=== PATIENT | female | born 1965 | race Caucasian/White ===

== ENCOUNTER → 2021-10-11 07:54 | Outpatient (CLI) | payer SELFPAY ==
--- NOTE | 2021-10-11 08:01 | BI_ITS ---
MAMMOGRAPHY - BILATERAL SCREENING REASON FOR EXAM: Female, 56 years old. Routine annual screening examination. PERTINENT HISTORY: Aunt with breast cancer. Remote right excisional breast biopsy. Prior left breast biopsy. TECHNIQUE: Digital bilateral breast yennifer (3D mammographic acquisition) in the CC and MLO projections. 2-D mediolateral oblique (MLO) and craniocaudad (CC) views of both breasts were obtained. CAD: Full Field Digital Mammography with Computer Added Detection was performed. COMPARISON: Comparison is made with prior outside examination of 03/08/2018. FINDINGS: Breast Composition: The breasts are heterogeneously dense, which may obscure small masses. There are no dominant masses or suspicious calcifications. A tissue clip marker is once again seen within a 9.1 mm nodule in the deep upper lateral aspect of the left breast. No other significant abnormalities are identified. There has been no significant change since the prior study. BI/SCRN MAMM (CAD)W/YENNIFER BILAT IMPRESSION: Stable bilateral screening mammogram. Yearly follow-up mammogram recommended. (A) ASSESSMENT CATEGORY: BIRADS Category 2: Benign. A letter regarding these results will be sent to the patient by the facility within 30 days. Approximately 10% of breast cancers are not detected by mammography. A normal mammogram should not delay biopsy of a clinically suspicious abnormality. [id number] Electronically Signed: Perez Simpson MD at 9:32 EDT ,
== END ==
DX: Z12.31 Encounter for screening mammogram for malignant neoplasm of breast (principal)
CPT/HCPCS: 77063; 77067

== ENCOUNTER 2021-11-05 08:02 | Day surgery (SDC) | payer SELFPAY ==
[2021-11-05] MEDS: Lactated Ringers 1,000 ML 15 ML IV (08:31)
[2021-11-05 08:34] VITALS: BP 121/80; PULSE 73; RESP 14; TEMP 36.3; O2SAT 99; BMI 25.3
--- NOTE | 2021-11-05 09:07 | H&P.OPEN ---
HPI - General HPI Narrative RAFY MCKINNON, is a 56 F who presents for screening colonoscopy. The patient has family history of colon cancer in her mother and gets colonoscopies every 5 years. Her last was normal. She did have a tortuous colon during her last colonoscopy. Patient denies any abdominal pain or blood in her stool. FOR[facility]LY [facility], [facility] Medical History (Updated 11/05/21 @ 09:[address] Raad Vivar MD) Anxiety Arthritis Depression High cholesterol Post-menopausal Wears glasses Home Medications atorvastatin 10 mg PO DAILY 10/31/21 [History Last Taken Unknown] venlafaxine [Effexor XR] 150 mg PO DAILY 10/31/21 [History Last Taken 11/05/21] Allergy/AdvReac Type Severity Reaction Status Date / Time amoxicillin Allergy Severe Hives Verified 10/31/21 12:24 Penicillins Allergy Severe Hives Verified 10/31/21 12:24 Sulfa (Sulfonamide Allergy Severe Hives Verified 10/31/21 12:24 Antibiotics) imipramine Allergy Intermediate Hives Verified 10/31/21 12:24 Surgical History (Updated 10/31/21 @ 12:29 by Nandini Bustillo) History of bladder surgery Social History Smoking Status: Never smoker Past Medical/Surgical History Planned Operation Planned Operative Procedure/s: Colonoscopy, OA Previous Hospitalizations/Surgeries HX Hospitalizations: No Any Problems With Anesthesia: No You/Your Family Experience Fever (Hyperthermia) With Anes: No Cholinesterase deficiency: No Cardiovascular Hx Hypertension: No Respiratory Hx Sleep Apnea: No Hx Respiratory Tract Infection/Cold (presently): No Do You Snore Loudly (louder than talking or can be heard): No Do You Often Feel Tired/ Fatigued/ Sleepy Dring Daytime?: No Has Anyone Observed You Stop Breathing During Sleep?: No Result (for STOP score): Negative Smoking Status: Never smoker Neurological Does patient have nerve stimulator: No Miscellaneous Recent Exposure to Contagious Disease: No Allergies amoxicillin Allergy (Severe, Verified 10/31/21 12:24) Hives Penicillins Allergy (Severe, Verified 10/31/21 12:24) Hives Sulfa (Sulfonamide Antibiotics) Allergy (Severe, Verified 10/31/21 12:24) Hives imipramine Allergy (Intermediate, Verified 10/31/21 12:24) Hives Discharge Is Pt Admitted From a Jail, or a Skilled Nursing: No After D/C, Where Do you Plan to Go: Return Home Vital Signs Vital Signs Vital Signs: 11/05/21 08:32 11/05/21 08:34 Temperature 97.4 F L Temperature Source Temporal Pulse Rate 73 Respiratory Rate 14 Respiratory Pattern Normal Blood Pressure 121/80 H Blood Pressure Mean 93 Blood Pressure Source Monitor Blood Pressure Position Sitting Blood Pressure Location Left Arm Pulse Ox 99 Oxygen Delivery Method Room Air Weight Weight: 147 lb 11.355 oz Body Mass Index (BMI) 25.3 Physical Exam Const alert and oriented x3 Resp normal respiratory effort and normal air movement Cardio regular rate and regular rhythm GI soft to palpation, non-tender and non-distended Assessment & Plan Assessment/Plan (1) Family history of colon cancer in mother: PLAN: I explained endoscopy in detail to the patient. I explained the risks including but not limited to stroke or heart attack with anesthesia, perforation of the GI tract, bleeding, infection. I explained that any of these could necessitate further emergency surgery. The patient understands and all questions were answered sufficiently. The patient wishes to proceed with procedure. Raad Vivar MD Pager: [facility] [address] [place] [address], [address] [place] [address] Office: Surgery Risks - Colonoscopy Risks Include but are not Limited To: Risks include but are not limited to: Bleeding, perforation requiring further surgery, inability to complete colonoscopy requiring barium enema.
--- NOTE | 2021-11-05 09:49 | OP.CCLET_ITS ---
11/05/2021 Dari Re : Colonoscopy procedure for Dolores Marreror Dari This procedure was performed on Friday, November 05, 2021. My impressions and recommendations are as follows: Impressions : - The entire examined colon is normal on direct and retroflexion views. - No specimens collected. Recommendations : - Discharge patient to home. - Resume previous diet. - Continue present medications. - Repeat colonoscopy in 5 years for surveillance. My findings are described in the full procedure note, which is enclosed. If I can be of further assistance, please feel free to contact me at Doctor phone number(s): , Work: . Sincerely, Raad Vivar MD 11/05/2021 9:49:02 AM This report has been signed electronically.
--- NOTE | 2021-11-05 09:49 | OP.COLON_ITS ---
Patient Name: Dolores Raines Procedure Date: 11/05/2021 9:14 AM Date of : 1965 Age: 56 Procedure: Colonoscopy Indications: Family history of colon cancer in a first-degree relative Providers: Raad Vivar MD Medicines: Monitored Anesthesia Care Patient Profile: This is a 56 year old female. Refer to note in patient chart for documentation of history and physical. Last Colonoscopy: 5 years ago. Complications: No immediate complications. Procedure: Pre-Anesthesia Assessment: - Prior to the procedure, a History and Physical was performed, and patient medications and allergies were reviewed. The patient's tolerance of previous anesthesia was also reviewed. The risks and benefits of the procedure and the sedation options and risks were discussed with the patient. All questions were answered, and informed consent was obtained. Prior Anticoagulants: The patient has taken no previous anticoagulant or antiplatelet agents. After reviewing the risks and benefits, the patient was deemed in satisfactory condition to undergo the procedure. After I obtained informed consent, the scope was passed under direct vision. Throughout the procedure, the patient's blood pressure, pulse, and oxygen saturations were monitored continuously. The Colonoscope was introduced through the anus and advanced to the cecum, identified by appendiceal orifice and ileocecal valve. The colonoscopy was performed without difficulty. The patient tolerated the procedure well. The quality of the bowel preparation was good. Scope In: 9:28:46 AM Scope Withdrawal Time 0 hours 5 minutes 51 seconds Scope Out: 9:45:22 AM Total Procedure Duration Time 0 hours 16 minutes 36 seconds Findings: The entire examined colon appeared normal on direct and retroflexion views. Impression: - The entire examined colon is normal on direct and retroflexion views. - No specimens collected. Recommendation: - Discharge patient to home. - Resume previous diet. - Continue present medications. - Repeat colonoscopy in 5 years for surveillance. Procedure Code(s): --- Professional --- 79601, Colonoscopy, flexible; diagnostic, including collection of specimen(s) by brushing or washing, when performed (separate procedure) Diagnosis Code(s): --- Professional --- Z80.0, Family history of malignant neoplasm of digestive organs CPT copyright 2017 [employer]. All rights reserved. The codes documented in this report are preliminary and upon manager fiber review may be revised to meet current compliance requirements. Raad Vivar MD 11/05/2021 9:49:02 AM This report has been signed electronically. Number of Addenda: 0 Note Initiated On: 11/05/2021 9:14 AM
[2021-11-05 09:51] VITALS: BP 101/75; BP 121/80; PULSE 72; RESP 16; TEMP 36.1; O2SAT 98
[2021-11-05 09:55] VITALS: BP 106/69; BP 121/80; PULSE 73; RESP 16; O2SAT 100
[2021-11-05 10:00] VITALS: BP 107/73; BP 121/80; PULSE 69; RESP 16; O2SAT 100
[2021-11-05 10:05] VITALS: BP 109/78; BP 121/80; PULSE 67; RESP 16; TEMP 36.3; O2SAT 100
[2021-11-05 10:21] VITALS: BP 121/80
== END 2021-11-05 10:32 | disposition home or self-care (01) ==
LOC: EN 08:10 → AC 08:11
PROVIDERS: Referring Provider Surgery; Visit Provider Surgery
PROC: 0DJD8ZZ Inspection of Lower Intestinal Tract, Via Natural or Artificial Opening Endoscopic (ICD-10-PCS; CPT 45378; principal; 2021-11-05 08:55)
DX: Z12.11 Encounter for screening for malignant neoplasm of colon (principal); E78.00 Pure hypercholesterolemia, unspecified; M19.90 Unspecified osteoarthritis, unspecified site; F32.A Depression, unspecified; F41.9 Anxiety disorder, unspecified; Z78.0 Asymptomatic menopausal state; Z79.899 Other long term (current) drug therapy; Z80.0 Family history of malignant neoplasm of digestive organs
CPT/HCPCS: 45378; J7120; J2405

== ENCOUNTER → 2022-12-22 | Outpatient (CLI) | payer SELFPAY ==
--- NOTE | 2022-12-22 10:51 | BI_ITS ---
MAMMOGRAPHY - BILATERAL SCREENING REASON FOR EXAM: Female, 57 years old. Routine annual screening examination. PERTINENT HISTORY: Aunt with breast cancer. History of prior bilateral breast reduction surgeries. TECHNIQUE: Digital bilateral breast yennifer (3D mammographic acquisition) in the CC and MLO projections. 2-D mediolateral oblique (MLO) and craniocaudad (CC) views of both breasts were obtained. CAD: Full Field Digital Mammography with Computer Added Detection was performed. COMPARISON: Comparison is made with prior study dated October 11, 2021. FINDINGS: Breast Composition: The breasts are heterogeneously dense, which may obscure small masses. There are no dominant masses or suspicious calcifications. A tissue clip marker is once again seen in a 9 mm nodule in the deep upper lateral aspect of the left breast. No other significant abnormalities are identified. There has been no significant change since the prior study. BI/SCRN MAMM (CAD)W/YENNIFER BILAT IMPRESSION: Stable bilateral screening mammogram. Yearly follow-up mammogram recommended. (A) ASSESSMENT CATEGORY: BIRADS Category 2: Benign. A letter regarding these results will be sent to the patient by the facility within 30 days. Approximately 10% of breast cancers are not detected by mammography. A normal mammogram should not delay biopsy of a clinically suspicious abnormality. [id number] Electronically Signed: Perez Simpson MD at 14:18 EDT ,
== END | disposition home or self-care (01) ==
DX: Z12.31 Encounter for screening mammogram for malignant neoplasm of breast (principal)
CPT/HCPCS: 77063; 77067